=== PATIENT | male | born 1985 | race Hispanic/Latino ===

== ENCOUNTER 2019-01-08 03:37 | Emergency (ER) | payer MEDICAID, OTHER ==
[2019-01-08 04:52] LABS: APPEARANCE,URINE Clear (CLEAR); BILIRUBIN,URINE Negative (NEGATIVE); COLOR,URINE Yellow (YELLOW); GLUCOSE, URINE (UA) Negative (NEGATIVE); KETONES,URINE Negative (NEGATIVE); LEUKOCYTE ESTERASE ,URINE Small (NEGATIVE); NITRATE,URINE Negative (NEGATIVE); OCCULT BLOOD,URINE Nonhemolyzed Trace (NEGATIVE); PH,URINE 7.5 (5.0-8.0); PROTEIN,URINE Negative (NEGATIVE)
[2019-01-08] MEDS ORDERED: ORPHENADRINE CITRATE 30 MG/ML ML ONE (05:08)
[2019-01-08] MEDS ORDERED: KETOROLAC TROMETHAMINE 30MG/ML ONE (05:09)
[2019-01-08 05:25] LABS: BACTERIA,URINE Few /HPF (None Seen); SQUAMOUS EPITHELIAL CELL,UR 0-2 /HPF (0-2)
== END 2019-01-08 05:32 | disposition home or self-care (01) ==
LOC: EDH 03:37
DX: M47.896 Other spondylosis, lumbar region (principal)
CPT/HCPCS: 74176; 81001; 96372 ×2; 99285; J1885; J2360